=== PATIENT | male | born 1945 | race Caucasian/White ===

== ENCOUNTER 2023-02-02 19:55 | Inpatient (IN) | payer OTHER, MEDICARE ==
[~2023-02-02] VITALS: Ht 177.8 cm; Wt 103.0 kg
[2023-02-02 20:33] VITALS: BP_SYST 195
[2023-02-02] MEDS ORDERED: LABETALOL HCL 20 MG/4 ML CARTRIDGE IVP ONE (21:00)
[2023-02-02] MEDS ORDERED: NACL 0.9% 1,000 ML IV ONE (21:00)
[2023-02-02] MEDS ORDERED: AMPICILLIN SODIUM/SULBACTAM NA 3 GM in NS 100 ML IV ONE (21:00)
[2023-02-02] MEDS ORDERED: methylPREDNISolone SOD SUCC/PF 62.5 MG/ML VIAL IVP ONE (21:00)
[2023-02-02 21:30] LABS: BASOPHILS % (AUTO) 0.2 % (0.0-2.0); HEMATOCRIT 40.6 % (36-54); HEMOGLOBIN 13.6 g/dL (14.0-18.0); LYMPHOCYTES # (AUTO) 0.7 K/uL (1.0-5.5); LYMPHOCYTES % (AUTO) 5.1 % (20.5-51.5); MEAN CORPUSCULAR HEMOGLOBIN 29 pg (27-31); MEAN CORPUSCULAR HGB CONC 33 % (32-36); MEAN CORPUSCULAR VOLUME 87 fL (79.0-98.0); MONOCYTES % (AUTO) 7.4 % (1.7-9.3); NEUTROPHILS # (AUTO) 12.3 K/uL (1.8-7.7); NEUTROPHILS % (AUTO) 87.3 % (40.0-70.0); PLATELET COUNT (AUTO) 188 K/uL (130-430); RED BLOOD CELL COUNT(AUTO) 4.67 MIL/uL (4.2-6.2); RED CELL DISTRIBUTION WIDTH 14.9 % (9.0-15.0); WHITE BLOOD COUNT (AUTO) 14.1 K/uL (4.8-10.8)
[2023-02-02 21:37] LABS: ALANINE AMINOTRANSFERASE 30 U/L (12-78); ALBUMIN 3.3 g/dL (3.4-4.8); ANION GAP 14 (5-15); ASPARTATE AMINOTRANSFERASE 13 U/L (10-37); CHLORIDE 96 mmol/L (98-107); CREATININE 1.16 mg/dL (0.55-1.30); GLUCOSE 201 mg/dL (70-99); UREA NITROGEN, BLOOD 24 mg/dL (8-21)
[2023-02-02] MEDS ORDERED: AMPICILLIN SODIUM/SULBACTAM NA 3 GM VIAL ONE ×2 (21:46→23:59)
[2023-02-02] MEDS ORDERED: METF1000 PO (21:48)
[2023-02-02] MEDS ORDERED: METO100T14 PO (21:48)
[2023-02-02] MEDS ORDERED: RIVA15TA PO (21:48)
[2023-02-02] MEDS ORDERED: PRAV40TA PO (21:48)
[2023-02-02] MEDS ORDERED: DILT-33 PO (21:48)
[2023-02-02] MEDS ORDERED: SEMA7TAB2 PO (21:48)
[2023-02-02] MEDS ORDERED: LOSA100T4 PO (21:48)
[2023-02-02] MEDS ORDERED: AMOX125T PO (21:48)
[2023-02-02] MEDS ORDERED: ASPI-859 PO (21:48)
[2023-02-02] MEDS ORDERED: FISH OIL 1,0001 EAC4 PO (21:48)
[2023-02-02] MEDS ORDERED: AMOX-426 PO (21:49)
[2023-02-02] MEDS ORDERED: IPRATROPIUM BROM 0.5 MG/2.5 ML VIAL.NEB (ATROVENT) INH PRN (22:45)
[2023-02-02] MEDS ORDERED: ONDANSETRON HCL 4 MG/2 ML VIAL IVP PRN (22:45)
[2023-02-02] MEDS ORDERED: LORazepam 2 MG/ML VIAL IVP PRN (22:45)
[2023-02-02] MEDS ORDERED: NALOXONE HCL 0.4 MG/ML AMP (NARCAN) IVP PRN (22:45)
[2023-02-02] MEDS ORDERED: MORPHINE 4 MG INJ. 4 MG/ML VIAL IVP PRN (22:45)
[2023-02-02] MEDS ORDERED: ALBUTEROL SULFATE 0.083% 2.5 MG/3 ML VIAL.NEB INH PRN (22:45)
[2023-02-02] MEDS ORDERED: MORPHINE 2 MG/ML INJ. SYRINGE IVP PRN (22:45)
[2023-02-02 23:15] VITALS: BP_SYST 158
[2023-02-02 23:21] LABS: BILIRUBIN,URINE 1+ (NEGATIVE); BLOOD, URINE 2+ (NEGATIVE); COLOR,URINE YELLOW (YELLOW); GLUCOSE,URINE NEGATIVE (NEGATIVE); KETONES,URINE TRACE (NEGATIVE); LEUKOCYTE ESTERASE ,URINE NEGATIVE (NEGATIVE); NITRITE, URINE NEGATIVE (NEGATIVE); PROTEIN URINE 3+ (NEGATIVE); UROBILINOGEN,URINE 0.2 (0.2-1.0)
[2023-02-02 23:42] LABS: CLARITY/URINE HAZY (CLEAR)
[2023-02-02 23:49] LABS: BACTERIA,URINE None Seen /HPF (None Seen); WBC,URINE 0-3 /HPF (0-3)
[2023-02-03] MEDS: D5/0.45 NS 1,000 ML IV SCH ×3 (00:30→17:36)
[2023-02-03] MEDS: INSULIN REGULAR, HUMAN 100 UNITS/ML, 3 ML VIAL (humuLIN R) SUBCUT PRN ×5 (00:33→23:57)
[2023-02-03 01:45] VITALS: BP_SYST 158
[2023-02-03] MEDS ORDERED: AMPICILLIN SODIUM/SULBACTAM NA 3 GM in NS 100 ML IV SCH ×3 (04:00)
[2023-02-03 06:17] LABS: BASOPHILS % (AUTO) 0.1 % (0.0-2.0); HEMATOCRIT 38.1 % (36-54); HEMOGLOBIN 12.6 g/dL (14.0-18.0); LYMPHOCYTES # (AUTO) 0.4 K/uL (1.0-5.5); LYMPHOCYTES % (AUTO) 3.5 % (20.5-51.5); MEAN CORPUSCULAR HEMOGLOBIN 29 pg (27-31); MEAN CORPUSCULAR HGB CONC 33 % (32-36); MEAN CORPUSCULAR VOLUME 87 fL (79.0-98.0); MONOCYTES # (AUTO) 0.1 K/uL (0.0-1.0); MONOCYTES % (AUTO) 1.2 % (1.7-9.3); NEUTROPHILS # (AUTO) 9.9 K/uL (1.8-7.7); NEUTROPHILS % (AUTO) 95.2 % (40.0-70.0); PLATELET COUNT (AUTO) 159 K/uL (130-430); RED BLOOD CELL COUNT(AUTO) 4.38 MIL/uL (4.2-6.2); RED CELL DISTRIBUTION WIDTH 14.6 % (9.0-15.0); WHITE BLOOD COUNT (AUTO) 10.4 K/uL (4.8-10.8)
[2023-02-03 06:45] LABS: ANION GAP 13 (5-15); C-REACTIVE PROTEIN QUANT 19.2 mg/dL (0-0.5); CALCIUM 8.8 mg/dL (8.4-11.0); CHLORIDE 97 mmol/L (98-107); CHOLESTEROL 135 mg/dL (<200); CREATININE 1.29 mg/dL (0.55-1.30); GLUCOSE 361 mg/dL (70-99); HDL CHOLESTEROL 57 mg/dL (>45); PHOSPHORUS 3.3 mg/dL (2.7-4.5); THYROID STIMULATING HORMONE 0.48 uIu/mL (0.34-4.82); TRIGLYCERIDES 88 mg/dL (30-150); UREA NITROGEN, BLOOD 24 mg/dL (8-21)
[2023-02-03 07:52] LABS: ERYTHROCYTE SEDIMENTATION RATE 65 MM/HR (0-15)
[2023-02-03 08:43] VITALS: BP_SYST 141
[2023-02-03] MEDS ORDERED: SEMAGLUTIDE PO SCH (09:00)
[2023-02-03] MEDS: OMEGA-3/DHA/EPA/FISH OIL 1 GM CAPSULE PO SCH ×2 (09:00→20:29)
[2023-02-03] MEDS: METHYLPREDNISOLONE SOD SUCC 40 MG/ML VIAL IVP SCH ×2 (09:09→20:30)
[2023-02-03] MEDS: ASPIRIN 81 MG TABLET(ECOTRIN) PO SCH (10:19)
[2023-02-03] MEDS: LOSARTAN POTASSIUM 50 MG TABLET (COZAAR) PO SCH (10:20)
[2023-02-03] MEDS: METOPROLOL TARTRATE 50 MG TABLET PO SCH (10:22)
[2023-02-03] MEDS: DILTIAZEM HCL 180 MG CAP.SR.24H PO SCH (10:23)
[2023-02-03] MEDS: metFORMIN HCL 500 MG TABLET PO SCH ×2 (10:24→20:31)
[2023-02-03] MEDS: RIVAROXABAN 15 MG TABLET PO SCH (10:40)
[2023-02-03] MEDS: AMPICILLIN SODIUM/SULBACTAM NA 3 GM in NS 100 ML IV SCH ×3 (11:20→23:46)
[2023-02-03 11:51] VITALS: BP_SYST 143
[2023-02-03 15:56] VITALS: BP_SYST 134
[2023-02-03 20:00] VITALS: BP_SYST 150
[2023-02-03] MEDS: ATORVASTATIN 10 MG TABLET PO SCH (20:31)
[2023-02-03] MEDS ORDERED: traZODone HCL 50 MG TABLET (DESYREL) PO PRN (23:30)
[2023-02-04] VITALS: BP_SYST 145; BP_SYST 149
[2023-02-04] MEDS: D5/0.45 NS 1,000 ML IV SCH ×3 (03:27→23:30)
[2023-02-04 04:00] VITALS: BP_SYST 152
[2023-02-04 05:26] LABS: BASOPHILS % (AUTO) 0.1 % (0.0-2.0); HEMATOCRIT 37.9 % (36-54); HEMOGLOBIN 12.3 g/dL (14.0-18.0); LYMPHOCYTES # (AUTO) 0.8 K/uL (1.0-5.5); LYMPHOCYTES % (AUTO) 5.3 % (20.5-51.5); MEAN CORPUSCULAR HEMOGLOBIN 28 pg (27-31); MEAN CORPUSCULAR HGB CONC 33 % (32-36); MEAN CORPUSCULAR VOLUME 87 fL (79.0-98.0); MONOCYTES # (AUTO) 0.4 K/uL (0.0-1.0); MONOCYTES % (AUTO) 2.6 % (1.7-9.3); NEUTROPHILS # (AUTO) 13.1 K/uL (1.8-7.7); PLATELET COUNT (AUTO) 180 K/uL (130-430); RED BLOOD CELL COUNT(AUTO) 4.37 MIL/uL (4.2-6.2); RED CELL DISTRIBUTION WIDTH 14.7 % (9.0-15.0); WHITE BLOOD COUNT (AUTO) 14.2 K/uL (4.8-10.8)
[2023-02-04 05:42] LABS: ANION GAP 9 (5-15); CALCIUM 8.7 mg/dL (8.4-11.0); CHLORIDE 100 mmol/L (98-107); CREATININE 1.08 mg/dL (0.55-1.30); GLUCOSE 266 mg/dL (70-99); UREA NITROGEN, BLOOD 31 mg/dL (8-21)
[2023-02-04 06:05] LABS: C-REACTIVE PROTEIN QUANT 10.9 mg/dL (0-0.5)
[2023-02-04] MEDS: AMPICILLIN SODIUM/SULBACTAM NA 3 GM in NS 100 ML IV SCH ×4 (07:01→23:54)
[2023-02-04] MEDS: INSULIN REGULAR, HUMAN 100 UNITS/ML, 3 ML VIAL (humuLIN R) SUBCUT PRN ×3 (07:09→18:20)
[2023-02-04 08:00] VITALS: BP_SYST 148
[2023-02-04 08:12] LABS: ERYTHROCYTE SEDIMENTATION RATE 42 MM/HR (0-15)
[2023-02-04] MEDS: SEMAGLUTIDE 7 MG PO SCH (09:00)
[2023-02-04] MEDS: RIVAROXABAN 15 MG TABLET PO SCH (09:00)
[2023-02-04] MEDS: DILTIAZEM HCL 180 MG CAP.SR.24H PO SCH (09:00)
[2023-02-04] MEDS: LOSARTAN POTASSIUM 50 MG TABLET (COZAAR) PO SCH (09:00)
[2023-02-04] MEDS: METOPROLOL TARTRATE 50 MG TABLET PO SCH (09:00)
[2023-02-04] MEDS: METHYLPREDNISOLONE SOD SUCC 40 MG/ML VIAL IVP SCH ×2 (09:00→21:25)
[2023-02-04] MEDS: metFORMIN HCL 500 MG TABLET PO SCH ×2 (09:00→21:23)
[2023-02-04] MEDS: OMEGA-3/DHA/EPA/FISH OIL 1 GM CAPSULE PO SCH ×2 (10:13→21:23)
[2023-02-04] MEDS: ASPIRIN 81 MG TABLET(ECOTRIN) PO SCH (10:52)
[2023-02-04 11:42] VITALS: BP_SYST 136
[2023-02-04] MEDS ORDERED: CLIN-22 PO (16:06)
[2023-02-04] MEDS ORDERED: PRED20TA PO (16:06)
[2023-02-04] MEDS ORDERED: AMOX-423 PO (16:06)
[2023-02-04 16:18] VITALS: BP_SYST 145
[2023-02-04 20:00] VITALS: BP_SYST 151; BP_SYST 153
[2023-02-04] MEDS: ATORVASTATIN 10 MG TABLET PO SCH (21:24)
[2023-02-05] MEDS: AMPICILLIN SODIUM/SULBACTAM NA 3 GM in NS 100 ML IV SCH ×2 (00:08→11:22)
[2023-02-05] MEDS: INSULIN REGULAR, HUMAN 100 UNITS/ML, 3 ML VIAL (humuLIN R) SUBCUT PRN ×3 (00:12→12:10)
[2023-02-05 04:00] VITALS: BP_SYST 153
[2023-02-05 07:29] LABS: BASOPHILS % (AUTO) 0.1 % (0.0-2.0); HEMATOCRIT 37.7 % (36-54); HEMOGLOBIN 12.5 g/dL (14.0-18.0); LYMPHOCYTES # (AUTO) 0.7 K/uL (1.0-5.5); MEAN CORPUSCULAR HEMOGLOBIN 29 pg (27-31); MEAN CORPUSCULAR HGB CONC 33 % (32-36); MEAN CORPUSCULAR VOLUME 87 fL (79.0-98.0); MONOCYTES # (AUTO) 0.2 K/uL (0.0-1.0); MONOCYTES % (AUTO) 2.4 % (1.7-9.3); NEUTROPHILS # (AUTO) 9.2 K/uL (1.8-7.7); NEUTROPHILS % (AUTO) 90.5 % (40.0-70.0); PLATELET COUNT (AUTO) 188 K/uL (130-430); RED BLOOD CELL COUNT(AUTO) 4.31 MIL/uL (4.2-6.2); RED CELL DISTRIBUTION WIDTH 14.6 % (9.0-15.0)
[2023-02-05 07:40] LABS: ANION GAP 10 (5-15); C-REACTIVE PROTEIN QUANT 3.8 mg/dL (0-0.5); CALCIUM 8.7 mg/dL (8.4-11.0); CHLORIDE 104 mmol/L (98-107); GLUCOSE 219 mg/dL (70-99); UREA NITROGEN, BLOOD 30 mg/dL (8-21)
[2023-02-05 07:46] VITALS: BP_SYST 159
[2023-02-05 08:19] LABS: WHITE BLOOD COUNT (AUTO) 10.1 K/uL (4.8-10.8)
[2023-02-05] MEDS: LOSARTAN POTASSIUM 50 MG TABLET (COZAAR) PO SCH (08:35)
[2023-02-05] MEDS: METOPROLOL TARTRATE 50 MG TABLET PO SCH (08:36)
[2023-02-05] MEDS: metFORMIN HCL 500 MG TABLET PO SCH (08:36)
[2023-02-05] MEDS: METHYLPREDNISOLONE SOD SUCC 40 MG/ML VIAL IVP SCH (08:37)
[2023-02-05] MEDS: ASPIRIN 81 MG TABLET(ECOTRIN) PO SCH (08:37)
[2023-02-05] MEDS: DILTIAZEM HCL 180 MG CAP.SR.24H PO SCH (08:37)
[2023-02-05] MEDS: OMEGA-3/DHA/EPA/FISH OIL 1 GM CAPSULE PO SCH (08:37)
[2023-02-05] MEDS: SEMAGLUTIDE 7 MG PO SCH (08:39)
[2023-02-05] MEDS: RIVAROXABAN 15 MG TABLET PO SCH (08:58)
[2023-02-05 08:59] LABS: ERYTHROCYTE SEDIMENTATION RATE 38 MM/HR (0-15)
[2023-02-05] MEDS: D5/0.45 NS 1,000 ML IV SCH (09:15)
[2023-02-05 11:42] VITALS: BP_SYST 153
[2023-02-05 13:30] VITALS: BP_SYST 150
== END 2023-02-05 14:35 | disposition home or self-care (01) | DRG 872 ==
LOC: SED 19:55 → STU 21:16
PROVIDERS: ADMIT Preventive Medicine Preventive Medicine/Occupational Environmental Medicine; ATTEND Preventive Medicine Preventive Medicine/Occupational Environmental Medicine
DX: A41.9 Sepsis, unspecified organism (principal); S32.059A Unspecified fracture of fifth lumbar vertebra, initial encounter for closed fracture; S32.049A Unspecified fracture of fourth lumbar vertebra, initial encounter for closed fracture; K12.2 Cellulitis and abscess of mouth; E87.1 Hypo-osmolality and hyponatremia; E87.20 Acidosis, unspecified; H20.00 Unspecified acute and subacute iridocyclitis; I24.8 Other forms of acute ischemic heart disease; R13.11 Dysphagia, oral phase; E11.65 Type 2 diabetes mellitus with hyperglycemia; I10 Essential (primary) hypertension; R31.9 Hematuria, unspecified; E88.09 Other disorders of plasma-protein metabolism, not elsewhere classified; J02.9 Acute pharyngitis, unspecified; X58.XXXA Exposure to other specified factors, initial encounter; E66.9 Obesity, unspecified; E78.00 Pure hypercholesterolemia, unspecified; I48.91 Unspecified atrial fibrillation; Z95.1 Presence of aortocoronary bypass graft; Z85.828 Personal history of other malignant neoplasm of skin; Z79.82 Long term (current) use of aspirin; Z68.32 Body mass index [BMI] 32.0-32.9, adult; Y93.89 Activity, other specified; Y92.89 Other specified places as the place of occurrence of the external cause; Y99.8 Other external cause status
CPT/HCPCS: 36415; 36600; 70490; 71045; 76376; 76770; 80048; 80053; 80061; 81000; 82803; 83605; 83735; 84100; 84443; 84484; 85025; 85651-TC; 86140; 87040; 87081; 93005; 93306; 94760; 96365; 96375; 99285; G0378; J0295; J1030; J1815; J2930